=== PATIENT | male | born 1960 | race Caucasian/White ===

== ENCOUNTER → 2018-08-01 | Outpatient (CLI) | payer MEDICARE, BC, OTHER ==
[~2018-08-01] MED LIST: /FEXO18TA OR; FERR325T OR; FLOM0.4C39 OR; MULTIVIT PO; OMEP20TA7 OR; TOVIAZ PO; VICO5TAB PO; VIT D 2000 PO; colon health PO; osteobiflex PO
--- NOTE | 2018-08-01 17:19 | ECHO ---
DATE OF PROCEDURE: 08/01/2018 REFERRING PHYSICIAN: Dr. Abiodun Juarez. INDICATION: Right bundle branch block. Height 170 cm, weight 73 kg. DIMENSIONS: IVS: 0.9 LV: 4.7 LVPW: 1.1 LA: 3.3 Aorta: 3.0 IVC: 1.4 Mitral E wave velocity: 62 A wave: 61 E prime septal: 7.2 E prime lateral: 10.7 FINDINGS: The study is of good technical quality. Left ventricle is of normal size and systolic function with estimated left ventricular ejection fraction (LVEF) 60-65%. No segmental wall motion abnormalities are appreciated. Right ventricle is of normal size and systolic function as well. Both atria appear normal. All four cardiac valves were reasonably well seen and appear normal. No pericardial effusion is noted. Inferior vena cava is normal size. Aortic root, aortic arch and visualized segment of abdominal aorta all appear normal. Doppler interrogation of aortic valve reveals no stenosis or insufficiency. There are also functionally competent mitral, tricuspid and pulmonic valves. Evaluation of diastolic function reveals likely normal diastolic function of left ventricle even though tissue Doppler velocities of mitral annulus are mildly reduced. CONCLUSIONS: 1. Study is of good technical quality. 2. Normal left ventricular (LV) size, systolic and diastolic function. 3. No significant valvular disease. 4. Normal central venous pressure. 6. Unable to estimate pulmonary artery pressure but no signs to suggest pulmonary hypertension. COMMENT: Subacute bacterial endocarditis (SBE) prophylaxis is not recommended. Essentially normal echocardiogram.
== END ==
LOC: M CARPUL 12:32
PROVIDERS: ATTEND Internal Medicine
DX: I45.4 Nonspecific intraventricular block (principal)

== ENCOUNTER → 2020-06-08 | Outpatient (CLI) | payer MEDICARE, BC, OTHER ==
--- NOTE | 2020-06-08 09:47 | REP ---
INDICATION: COUGH. COMPARISON: CT 01/24/2017 at [facility], chest x-ray 05/13/2019 TECHNIQUE: Noncontrast CT images with coronal and sagittal reconstructions and coronal MIP PE reformat lung windows. FINDINGS: The atmospheric scientist image shows a dorsal column stimulator leads extending up to the superior aspect of the T8 vertebral level and showing some spray artifact from it. There is some subpleural dependent atelectatic change paraspinal and deep sulcus lower lobes in a symmetric fashion bilaterally. Few subpleural blebs are noted. There is some cylindrical bronchiectatic change evident. There is a small stable nodule 5.6 mm right upper lobe along the minor fissure unchanged from the previous study. Some minor subpleural fibrotic changes are noted bilaterally in the mid and upper lung zones. Some minor apical pleuroparenchymal scarring evident and unchanged. No pleural effusion, pleural based mass or parenchymal masses are identified. There is some curvilinear fibrotic change in the inferior lingular segment in the left upper lobe near the left heart border. This was not present previously. The area of a curvilinear fibro atelectatic change is about 17 mm in greatest diameter. A 3 mm nodule in the right lower lobe on image 63 is stable. Previously noted 4 mm nodule of the mid axillary line right lateral base is no longer visible. Heart size not enlarged. No pericardial thickening or effusion see. No hiatal hernia. Some calcifications in coronary arteries. There is a 13 mm short axis node, previously 9 mm, in the right paratracheal/precarinal region. Some other subcentimeter right paratracheal/ prevascular, AP window, subcarinal hilar nodes are present, not much changed. No axillary or supraclavicular masses nor pathologic sized adenopathy. No aortic aneurysm. The bone windows show the sternum, manubrium, medial clavicles, visible scapulae, shins of humeral heads included, ribs and spine without destructive lesions. Some degenerative changes in the spine but no compression fracture. The upper abdomen shows that portion of liver, spleen, gallbladder, visualized pancreas, and those portions of kidneys visible all grossly intact and unchanged. Some subcapsular calcification posteriorly in the right hepatic lobe also unchanged. The visible portions of colon and small bowel in the upper abdomen are unremarkable. Small splenule adjacent to the anterior superior spleen as before. IMPRESSION: Stable right upper lobe and right lower lobe small pulmonary nodules 5.6 and 3 mm respectively with a previous 4 mm right lateral base nodule resolved. Cylindrical bronchiectatic change in subpleural fibrotic changes along with dependent atelectatic changes paraspinal regions bilaterally in the mid lower lung zones. Curvilinear fibro atelectatic change inferior lingular segment anterior left lung base 17 mm in greatest diameter. No other new lung findings or mass. One precarinal/right paratracheal lymph node 13 mm short axis, was 9 mm on the previous CT. There are few other sub cm sized mediastinal hilar nodes. No other significant finding. <Electronically signed by Filemon Dunlap > 06/08/20 0954
== END ==
LOC: M RAD 08:58
PROVIDERS: ATTEND Physician Assistant
DX: R91.8 Other nonspecific abnormal finding of lung field (principal); R05 Cough

== ENCOUNTER → 2020-10-05 | Outpatient (CLI) | payer MEDICARE, BC, OTHER ==
[~2020-10-05] MED LIST changes: +ISOVUE-370 76% 100ML VIAL As Ordered ONE
--- NOTE | 2020-10-05 08:56 | REP ---
INDICATION: ABN FINDING OF LUNG. COMPARISON: 06/08/[address] TECHNIQUE: Bolus of 75 mL Isovue 370 scanning through the chest with both coronal and sagittal reconstructions provided. FINDINGS: Jointer Machine Operator image shows the dorsal column stimulator unchanged. Anterior cervical plate and screw fixation also noted. The lung chong are well inflated. Some minor dependent atelectatic change noted posteriorly in both lungs. Zone of curvilinear fibro atelectatic change in the inferior lingular segment anterior left lung base abutting the diaphragm and heart border unchanged. Is 4 mm subpleural nodule posterior axillary line lateral basal segment right lower lobe on image 72 unchanged. The 3 mm nodule in the right lower lobe noted previously is no longer visible. The curvilinear 5.6 mm nodule on the previous study abutting the minor fissure in the anterior segment right upper lobe is seen and unchanged. I see no other or new nodules in the right or left lung. No pleural effusion, pleural based mass or calcified pleural plaque. Minor subsegmental atelectatic change in the lateral basal segment the left lower lobe is present. Heart size not enlarged. No gross cardiomegaly. I see no hiatal hernia the aorta shows no aneurysm or dissection. The main, right and left pulmonary arteries in the mediastinum in the visible lobar arteries were unremarkable. There subcentimeter prevascular space nodes. 10 mm node in the AP window on image 37, 8-9 mm in the previous exam. 13 mm short axis right peritoneal tracheal node is seen and unchanged. Some subcentimeter precarinal other right paratracheal nodes and bilateral hilar nodes again seen. Largest left hilar node is 10 mm. On right hilum 2 adjacent nodes 13.5 and 13 mm respectively; above these there is a 14 mm node. Other subcentimeter right hilar nodes abutting segmental arteries of the right lower lobe after their takeoff. There is no axillary or supraclavicular mass. Tracheal airway intact. Bone windows show minor degenerative changes the in the spine. Sternum, manubrium, medial clavicles and those portions of the visualized scapulae, humeral heads and ribs are unremarkable. The upper abdomen shows visualized portions of liver, pancreas and upper poles of kidneys intact the gallbladder shows no calcified stone or mass spleen was unremarkable. There is a small splenule adjacent to the tail of the pancreas near the spleen.. IMPRESSION: 1. Generally stable pattern of parenchymal lung findings with dependent atelectatic changes, some curvilinear fibro atelectatic changes as described and with a few small nodules described in detail above. None of those visible are changed. One nodule seen previously is no longer present. 2. The hilar and mediastinal adenopathy as described. Increase in number of nodes greater than a cm compared to the previous study. 3. Heart not enlarged. No pericardial thickening or effusion. No aortic aneurysm or dissection. The central pulmonary arteries and visible lobar arteries are without filling defect. <Electronically signed by Filemon Dunlap > 10/05/20 0896
== END ==
LOC: M RAD 07:16
PROVIDERS: ATTEND Internal Medicine Pulmonary Disease
DX: J98.8 Other specified respiratory disorders (principal); R59.0 Localized enlarged lymph nodes
CPT/HCPCS: 71260; Q9967

== ENCOUNTER → 2020-10-21 | Outpatient (REF) | payer MEDICARE, BC, OTHER ==
[~2020-10-21] MED LIST changes: -ISOVUE-370 76% 100ML VIAL As Ordered ONE
[2020-10-21 13:39] LABS: BASO % 0.6 % (0.0-1.0); EOS # 0.1 10^3/uL (0.0-0.5); EOS % 2.3 % (0.0-3.0); HEMATOCRIT 47.2 % (42.0-52.0); HEMOGLOBIN 14.4 g/dl (13.5-17.5); LYMPH # 1.2 10^3/uL (1.5-5.0); LYMPH % 22.8 % (24.0-44.0); MEAN CORPUSCULAR HGB CONC 30.5 g/dl (32.0-36.5); MEAN CORPUSCULAR VOLUME 78.7 fl (80.0-96.0); MONO # 0.5 10^3/uL (0.0-0.8); MONO % 10.1 % (2.0-8.0); NEUTROPHILS # 3.4 10^3/uL (1.5-8.5); PLATELET COUNT, AUTOMATED 280 10^3/uL (150-450); WHITE BLOOD COUNT 5.2 10^3/uL (4.0-10.0)
[2020-10-21 13:49] LABS: ALBUMIN 4.1 GM/DL (3.2-5.2); ALT/SGPT 52 U/L (12-78); BILIRUBIN,DIRECT < 0.1 MG/DL (0.0-0.2); BILIRUBIN,TOTAL 0.2 MG/DL (0.2-1.0); CALCIUM LEVEL 9.7 MG/DL (8.8-10.2); CREATININE FOR GFR 0.98 MG/DL (0.70-1.30); GLOMERULAR FILTRATION RATE > 60.0 (>49); TOTAL PROTEIN 7.2 GM/DL (6.4-8.2)
== END ==
LOC: M LAB REF 12:53
PROVIDERS: ATTEND Internal Medicine Pulmonary Disease
DX: R91.8 Other nonspecific abnormal finding of lung field (principal)

== ENCOUNTER → 2020-10-21 | Outpatient (CLI) | payer MEDICARE, BC, OTHER ==
[~2020-10-21] MED LIST changes: +METHACHOLINE KIT (J7674) INH ONE
--- NOTE | 2020-10-21 08:48 | PFTRPT ---
Site: [facility], [address] [place], [address] ID: [id number] Name: TRAVON RODRIGUEZ Visit Date: 10/21/2020 Second ID: [id number] Referring Doctor: Igor Chase D.O. Reviewing Doctor: Dontrell Lomeli MD Broiler Manager: Juany LAMB RRT Age: 60 : 1960 Sex: Male Race: Height: 67.00 Inches Weight: 175.00 Lbs BSA: 1.91 Order IDs: [id number] Requested Test(s): <RESP-PFT.METH CHAL> Diagnosis: R05 of albuterol for post bronchodilator. Review Status: Not Reviewed Pre-Bronch Post-Bronch Pred Actual %Pred Actual %Chng SPIROMETRY FVC (L) 4.25 4.36 102 4.07 -6 FEV1 (L) 3.21 3.48 108 3.26 -6 FEV1/FVC (%) 76 80 104 80 FEF 25% (L/sec) 7.00 7.53 107 7.52 FEF 50% (L/sec) 4.46 5.28 118 4.52 -14 FEF 75% (L/sec) 1.32 1.12 84 0.56 -49 FEF 25-75% (L/sec) 2.66 3.48 130 2.48 -28 FEF Max (L/sec) 8.51 7.54 88 7.55 FIVC (L) 4.39 4.17 -4 FIF 50% (L/sec) 4.70 4.54 96 5.40 18 FIF Max (L/sec) 4.58 6.12 33 Expiratory Time (sec) 6.89 7.02 1 Back Extrap Vol (L) 0.17 0.14 -20 Time To FEFmax (sec) 0.132 0.119 -10
== END ==
LOC: M CARPUL 09-14 08:35
PROVIDERS: ATTEND Internal Medicine Pulmonary Disease
DX: R05 Cough (principal); R91.8 Other nonspecific abnormal finding of lung field
CPT/HCPCS: 80076; 82164; 82310; 82565; 85025; 86606; 86612; 86635; 86698; 87899; 94070; 95070; J7674

== ENCOUNTER → 2020-11-12 | Outpatient (CLI) | payer MEDICARE, BC, OTHER ==
[~2020-11-12] MED LIST changes: +ALBU83IN INH; +ATOR1TAB21 PO; +AZEL1SPR3 NARES; +D31000TA2 PO; +DULO1CAP6 PO; +EPIN0.3I11 IM; +FLUTISP NARES; +GABA600T4 PO; -METHACHOLINE KIT (J7674) INH ONE; +MONT10TA10 PO; +TAMS1CAP17 PO; +VENTAER INH; +VITMTA PO
== END ==
LOC: M LABSMTC 09:17
PROVIDERS: ATTEND Anesthesiology
DX: Z01.818 Encounter for other preprocedural examination (principal); Z11.52 Encounter for screening for COVID-19

== ENCOUNTER 2020-11-17 10:15 | Day surgery (SDC) | payer MEDICARE, BC, OTHER ==
[~2020-11-17] VITALS: Ht 170.2 cm; Wt 77.7 kg
[~2020-11-17 10:15] MED LIST changes: +LIDOCAINE 2% 100MG/5ML SDV (FOR ANES.) As Ordered ONE; +LR 1,000 ML IV ONE; +MIDAZOLAM INJ 2MG/2ML VIAL (J2250 PER 1MG) As Ordered ONE; +ROCURONIUM BROMIDE 50 MG/5 ML VIAL As Ordered ONE; +fentaNYL 100 MCG/2 ML INJECTION (J3010) As Ordered ONE; +propofoL 200 MG/20 ML VIAL As Ordered ONE
[2020-11-17] MEDS ORDERED: LIDOCAINE 4% INJ 5ML AMP INH ONE (10:35)
[2020-11-17] MEDS ORDERED: ALBUTEROL SULFATE 2.5 MG/0.5 ML INH NEB SOLN INH ONE (10:40)
[2020-11-17] MEDS ORDERED: EPINEPHrine 1MG/10ML SYRINGE 1.5IN As Ordered ONE (10:48)
[2020-11-17] MEDS ORDERED: LIDOCAINE 1% SDV 30ML VIAL As Ordered ONE (10:48)
[2020-11-17] MEDS ORDERED: CETACAINE SPRAY 5GM As Ordered ONE (10:48)
[2020-11-17] MEDS ORDERED: THROMBIN SOLN 5,000 UNITS VIAL As Ordered ONE (10:48)
[2020-11-17] MEDS ORDERED: LIDOCAINE VISCOUS 2% SOLN 15ML UDC As Ordered ONE (10:48)
[2020-11-17] MEDS ORDERED: dexameTHASONE 4 MG/ML 1ML VIAL (J1100 PER 1MG) As Ordered ONE (11:18)
[2020-11-17] MEDS ORDERED: ONDANSETRON 4MG/2ML VIAL As Ordered ONE (11:26)
[2020-11-17] MEDS ORDERED: SUGAMMADEX SODIUM 500 MG/5 ML VIAL (BRIDION) As Ordered ONE (11:26)
[2020-11-17] MEDS ORDERED: PHENYLephrine 500MCG 5ML (100MCG/ML) SYRINGE As Ordered ONE (11:30)
[2020-11-17] MEDS ORDERED: ePHEDrine SULFATE 25 MG/5 ML(5MG/ML) SYRINGE As Ordered ONE (11:32)
--- NOTE | 2020-11-17 12:24 | REP ---
INDICATION: POST OP. COMPARISON: 05/13/2019. TECHNIQUE: Single portable AP view of the chest was performed. FINDINGS: There is no acute infiltrate or pulmonary edema. Lungs are clear. The heart is not significantly enlarged. The mediastinal silhouette is unremarkable. The visualized osseous structures are intact.Dorsal column stimulator leads are again noted, as well as a metallic plate and screws in the lower cervical spine. IMPRESSION: No acute pulmonary disease. <Electronically signed by Jeb Garza > 11/17/20 [id number]
[2020-11-17] MEDS ORDERED: fentaNYL 100 MCG/2 ML INJECTION (J3010) IV PRN (12:30)
[2020-11-17] MEDS ORDERED: PERCOCET 5MG/325MG TAB PO PRN (12:30)
[2020-11-17] MEDS ORDERED: ONDANSETRON 4MG/2ML VIAL IV PRN (12:30)
[2020-11-17] MEDS ORDERED: LR 1,000 ML IV SCH (12:30)
[2020-11-17] MEDS ORDERED: METOCLOPRAMIDE INJ 10MG/2ML VIAL (J2765 PER 1) IV PRN (12:30)
--- NOTE | 2020-11-17 12:43 | RO ---
OPERATIVE NOTE DATE OF OPERATION: 11/17/2020 PREOPERATIVE DIAGNOSIS: Abnormal chest CT, adenopathy. POSTOPERATIVE DIAGNOSIS: Abnormal chest CT, adenopathy. FINDINGS: Normal smoker's airways. PROCEDURE: Bronchoscopy with endobronchial ultrasound. PROCEDURALIST: Igor Chase D.O. HUMAN RESOURCES TRAINEE: Dr. Forte SPECIMENS OBTAINED: FNA right hilar node. ANESTHESIA: General anesthesia, please refer to their records for details. ESTIMATED BLOOD LOSS: Less than 5 mL, none replaced. COMPLICATIONS: None observed. DRAINS: None. DESCRIPTION OF PROCEDURE: After informed consent was reviewed with the patient in the preoperative area, he was brought back to OR #8. Case was handed over to anesthesia, he was intubated with an 8.5 endotracheal tube, case was handed back over to mt. A time out was performed with two patient identifiers, identifying correct site and correct procedure and correlating name and date of with radiology. Cetacaine spray was then used to anesthetize the airway and provide lubrication for the 1T190 bronchoscope, which was inserted into the endotracheal tube. The trachea was midline and hua was sharp. Right and left mainstem bronchi were normal. RB1 through 10 was inspected without endobronchial lesion. There was minimal banding and pitting. Left main bronchus was also normal. LB1 through 10 inspected. All airways were suctioned. There was minimal banding and pitting. Bronchoscope was then retracted and the endotracheal ultrasound was inserted. There was no significant left hilar adenopathy. There was a very small flat subcarinal node which was approximately 6 mm. there was also a very small right pretracheal node which was less than 5 mm. Right hilar node was full, therefore this was sampled. After adequate sampling under endobronchial ultrasound hemostasis was assured. Endobronchial ultrasound was removed. 1T190 bronchoscope was reinserted, all airways were suctioned. Again, hemostasis was assured. 1T190 bronchoscope was removed. The patient was extubated and is in recovery. Postprocedure chest x-ray is pending at this point in time.
[2020-11-17 13:10] VITALS: BP 120/68
== END 2020-11-17 13:17 | disposition home or self-care (01) ==
LOC: M SDC 10:15
PROVIDERS: ATTEND Internal Medicine Pulmonary Disease
DX: R59.0 Localized enlarged lymph nodes (principal); R91.8 Other nonspecific abnormal finding of lung field; J45.20 Mild intermittent asthma, uncomplicated; J47.9 Bronchiectasis, uncomplicated; R05 Cough; E78.5 Hyperlipidemia, unspecified; Z85.46 Personal history of malignant neoplasm of prostate; Z96.82 Presence of neurostimulator; M54.9 Dorsalgia, unspecified; Z87.891 Personal history of nicotine dependence; R07.9 Chest pain, unspecified; R06.83 Snoring; Z91.048 Other nonmedicinal substance allergy status; Z91.030 Bee allergy status; Z79.899 Other long term (current) drug therapy
CPT/HCPCS: 31653; 71045; 88173; 88305; 88342; J1100; J2250; J2370; J2405; J3010

== ENCOUNTER → 2022-05-12 | Outpatient (CLI) | payer MEDICARE, BC, OTHER ==
[~2022-05-12] MED LIST changes: +ALBU2.5V10 INH; -ALBU83IN INH; -D31000TA2 PO; -LIDOCAINE 2% 100MG/5ML SDV (FOR ANES.) As Ordered ONE; -LR 1,000 ML IV ONE; -MIDAZOLAM INJ 2MG/2ML VIAL (J2250 PER 1MG) As Ordered ONE; -MONT10TA10 PO; +MONT10TA97 PO; -ROCURONIUM BROMIDE 50 MG/5 ML VIAL As Ordered ONE; +VITA100093 PO; -fentaNYL 100 MCG/2 ML INJECTION (J3010) As Ordered ONE; -propofoL 200 MG/20 ML VIAL As Ordered ONE
== END ==
LOC: M RAD 13:05
PROVIDERS: ATTEND Internal Medicine Pulmonary Disease
DX: D86.1 Sarcoidosis of lymph nodes (principal); J47.9 Bronchiectasis, uncomplicated

== ENCOUNTER → 2022-07-18 | Outpatient (CLI) | payer MEDICARE, BC, OTHER ==
[~2022-07-18] MED LIST changes: +FLUT50SP17 NARES; -FLUTISP NARES
== END ==
LOC: M RAD 11:22
PROVIDERS: ATTEND Internal Medicine Pulmonary Disease
DX: J47.9 Bronchiectasis, uncomplicated (principal)

== ENCOUNTER → 2023-03-02 | Outpatient (CLI) | payer MEDICARE, BC, OTHER ==
[~2023-03-02] MED LIST changes: -FLUT50SP17 NARES; +FLUTISP NARES
[2023-03-02 14:23] LABS: C REACTIVE PROTEIN QUANTITATIV < 0.40 MG/DL (<1.0)
[2023-03-02 14:24] LABS: IRON (FE) 81 UG/DL (65-175); PERCENT SATURATION 24.4 % (19.7-50.0); TOTAL IRON BINDING CAPACITY 332 UG/DL (250-425)
[2023-03-02 14:25] LABS: FREE T4 1.14 NG/DL (0.89-1.76); THYROID STIMULATING HORMONE 1.946 uIU/ML (0.55-4.78)
[2023-03-02 14:26] LABS: FERRITIN 79.9 NG/ML (10.5-307.3)
[2023-03-02 15:09] LABS: HEPATITIS B CORE ANTIBODY IGM NEGATIVE (NEGATIVE); HEPATITIS C VIRUS ABY INDEX 0.05 INDEX (<0.8)
[2023-03-03 11:08] LABS: ANTINUCLEAR ANTIBODIES DIRECT Negative (Negative)
== END ==
LOC: M PLALAB 09:22
PROVIDERS: ATTEND Registered Nurse
DX: R53.83 Other fatigue (principal); Z79.899 Other long term (current) drug therapy; Z86.39 Personal history of other endocrine, nutritional and metabolic disease

== ENCOUNTER → 2023-04-23 | Outpatient (CLI) | payer MEDICARE, BC, OTHER | LOC: M SLEEP 20:00 | PROVIDERS: ATTEND Physician Assistant | DX: R06.83 Snoring (principal) ==

== ENCOUNTER → 2023-11-06 | Outpatient (CLI) | payer MEDICARE, BC ==
[2023-11-06 16:09] LABS: IRON (FE) 85 UG/DL (65-175)
[2023-11-06 16:10] LABS: FERRITIN 53.3 NG/ML (10.5-307.3); PERCENT SATURATION 25.4 % (19.7-50.0); TOTAL IRON BINDING CAPACITY 334 UG/DL (250-425)
[2023-11-06 16:11] LABS: FREE T4 1.09 NG/DL (0.89-1.76); THYROID STIMULATING HORMONE 1.206 uIU/ML (0.55-4.78); VITAMIN B12 LEVEL 551 PG/ML (211-911)
[2023-11-06 16:12] LABS: FOLATE > 24.0 NG/ML (>5.4)
[2023-11-06 16:15] LABS: THYROID PEROXIDASE ANTIBODY 1237 U/ML (<60.0)
== END ==
LOC: M LAB 14:44
PROVIDERS: ATTEND Registered Nurse
DX: D64.9 Anemia, unspecified (principal); E06.3 Autoimmune thyroiditis

== ENCOUNTER → 2023-11-06 | Outpatient (CLI) | payer MEDICARE, BC | LOC: M RAD 14:38 | PROVIDERS: ATTEND Registered Nurse | DX: E07.9 Disorder of thyroid, unspecified (principal) ==

== ENCOUNTER → 2024-04-16 | Outpatient (CLI) | payer MEDICARE, BC ==
[~2024-04-16] MED LIST changes: +GABA-1490 PO; -GABA600T4 PO
== END ==
LOC: M RAD 09:34
PROVIDERS: ATTEND Neurological Surgery
DX: M48.02 Spinal stenosis, cervical region (principal); M50.00 Cervical disc disorder with myelopathy, unspecified cervical region